=== PATIENT | female | born 1990 | race Two or more races ===

== ENCOUNTER → 2018-02-10 | Outpatient (CLI) | payer MEDICARE ==
--- NOTE | 2018-02-10 10:06 | RADIOLOGY REPORT (SQ) ---
EXAM DESCRIPTION: MRI HEAD COMBO COMPLETED DATE/TIME: 02/10/2018 8:42 am REASON FOR STUDY: MS (G35) G35 MULTIPLE SCLEROSIS COMPARISON: None. TECHNIQUE: Multiplanar imaging includes noncontrasted T1, T2, FLAIR, diffusion with ADC map and post gadolinium contrast T1 sequences. Images stored on PACS. CONTRAST TYPE AND DOSE: 9 mL Dotarem. RENAL FUNCTION: None required. The patient is less than 50 years old. LIMITATIONS: None. FINDINGS: ANATOMY: No developmental anomalies. Normal vascular flow voids. Pituitary fossa normal. CSF SPACES: Normal in size and contour. No hemorrhage. CEREBRUM and POSTERIOR FOSSA: Multiple chronic appearing demyelinating lesions are present involving the posterior patella, rightward anterior betty, left lateral betty, bilateral frontal parietal and tem poral deep periventricular white matter in characteristic distribution for multiple sclerosis. Today 's images demonstrate no lesions positive on diffusion. No contrast-enhancing white matter lesions a re evident. There is no MR evidence of acute ischemic change, acute intracranial hemorrhage, mass effect, or midl ine shift. DIFFUSION IMAGING: Negative for acute or subacute infarction. ORBITS: No masses. Globes normal. PARANASAL SINUSES: No fluid levels. Mucosa normal. OTHER: No other significant finding. IMPRESSION: Multiple chronic appearing demyelinating lesions characteristic for multiple sclerosis t hroughout the hemispheric white matter, betty, and posterior left medulla. No acute lesions are ident ified by contrast enhancement or diffusion signal alteration EVIDENCE OF ACUTE STROKE: NO. TECHNICAL DOCUMENTATION: JOB ID: [id number] [employer]- All Rights Reserved Reading location - IP/workstation name: [email or web address]
--- NOTE | 2018-02-10 10:13 | RADIOLOGY REPORT (SQ) ---
EXAM DESCRIPTION: MRI CERVICAL SPINE COMBO COMPLETED DATE/TIME: 02/10/2018 8:42 am REASON FOR STUDY: MS (G35) G35 MULTIPLE SCLEROSIS COMPARISON: MRI brain same date TECHNIQUE: Sagittal and Axial imaging includes T1, T2, STIR and gradient echo sequences. T1 post cherelle olinium sequences. CONTRAST TYPE AND DOSE: 9 mL Dotarem. RENAL FUNCTION: None required. The patient is less than 50 years old. LIMITATIONS: None. FINDINGS: ALIGNMENT: Normal. VERTEBRAE: Intact. BONE MARROW: Normal. No marrow replacement or reactive changes. DISCS: Normal. No significant abnormal signal or loss of height. HARDWARE: None in the spine. CORD AND BASE OF BRAIN: Chronic appearing demyelinating lesions are seen at the upper edge of the fie ld of view on the sagittal T2/stir images in the right anterior betty, left lateral betty and posterior medulla. There is a 1.6 cm long segment of abnormal increased stir/T2 signal in the anterior and leftward vent ral cord. This is seen from the C2-3 disc space down to the C3-4 disc space. No contrast enhancemen t. This is best shown on sagittal T2 image 8 and axial images 2-7. This is likely a chronic finding SOFT TISSUES: No soft tissue masses. C1-C2: No significant spinal stenosis. C2-C3: No significant spinal stenosis or exit foraminal stenosis. C3-C4: No significant spinal stenosis or exit foraminal stenosis. C4-C5: No significant spinal stenosis or exit foraminal stenosis. C5-C6: No significant spinal stenosis or exit foraminal stenosis. C6-C7: No significant spinal stenosis or exit foraminal stenosis. C7-T1: No significant spinal stenosis or exit foraminal stenosis. UPPER THORACIC: Incompletely imaged. No significant spinal stenosis or exit foraminal stenosis. ENHANCEMENT: No abnormal enhancement. OTHER: No other significant finding. IMPRESSION: Abnormal increased intrinsic cord signal anterior and leftward cervical cord from the C2 -3 level through the C3-4 level. This likely represents a subacute or chronic demyelinating plaque. COMMENT: None. TECHNICAL DOCUMENTATION: JOB ID: [id number] [employer]- All Rights Reserved Reading location - IP/workstation name: [email or web address]
== END ==
LOC: RAD 06:46
PROVIDERS: ATTEND Psychiatry & Neurology Neurology
DX: G35 Multiple sclerosis (principal)
CPT/HCPCS: 70553; 72156; A9576

== ENCOUNTER 2018-07-10 13:50 | Emergency (ER) | payer MEDICARE ==
--- NOTE | 2018-07-10 14:27 | ER Document Report ---
ED Medical Screen (RME) - General Chief Complaint: General Weakness Stated Complaint: GENERALIZED WEAKNESS Time Seen by Provider: 07/10/18 14:20 Primary Care Provider: KATIA CALDERON III, MD [Primary Care Provider] - Follow up as needed TRAVEL OUTSIDE OF THE [place] IN LAST 30 DAYS: No - HPI Notes: 07/10/18 14:25 Patient is a 28-year-old female with a history of MS and muscular dystrophy who presents to the emergency department complaining of possible relapse of her MS. She is usually seen by [facility]. Her last MRI was in December. Patient states that she has needed steroids in the past or previous flareups. Patient states that she started taking a new medicine that was supposed to help her walk, but believes that it is putting her in another relapse of MS as she has had difficulty ambulating without assistance which is not usually normal for her. She is otherwise eating and drinking without difficulty. The left side of her body is more affected than the right which is not uncommon when it comes to weakness. Denies SAENZ, fever, neck pain, URI, CP, SOB, Abd pain, or rash. I have treated and performed a rapid initial assessment of this patient. A co mprehensive ED assessment and evaluation of the patient, analysis of test results and completion of medical decision making process will be conducted by additional ED providers. PHYSICAL EXAMINATION: GENERAL: Well-appearing, well-nourished and in no acute distress. A&Ox4. Answers questions appropriately. LUNGS: Breath sounds clear to auscultation bilaterally and equal. No wheezes rales or rhonchi. HEART: Regular rate and rhythm without murmurs, rubs, gallops. - Related Data Allergies/Adverse Reactions: No Known Allergies Allergy (Verified 07/10/18 13:55) Past Medical History Past Surgical History: Reports: Hx Appendectomy, Hx Orthopedic Surgery - Immunizations Hx Diphtheria, Pertussis, Tetanus Vaccination: Yes Doctor's Discharge - Discharge Referrals: KATIA CALDERON III, MD [Primary Care Provider] - Follow up as needed
[2018-07-10 15:35] LABS: ABSOLUTE LYMPHOCYTES (AUTO) 1.4 10^3/uL (0.5-4.7); ABSOLUTE MONOCYTES (AUTO) 0.7 10^3/uL (0.1-1.4); ABSOLUTE NEUT (AUTO) 4.1 10^3/uL (1.7-8.2); BASOPHILS % (AUTO) 0.7 % (0-2); EOSINOPHILS % (AUTO) 0.7 % (0-6); HEMATOCRIT 37.9 % (36.0-47.0); HEMOGLOBIN 12.5 g/dL (12.0-15.5); LYMPHOCYTES % (AUTO) 21.7 % (13-45); MEAN CORPUSCULAR VOLUME 82 fl (80-97); MONOCYTES % (AUTO) 10.6 % (3-13); PLATELET COUNT 328 10^3/uL (150-450); RED BLOOD COUNT 4.64 10^6/uL (3.72-5.28); SEGMENTED NEUTROPHILS % (AUTO) 66.3 % (42-78); TOTAL CELLS COUNTED % (AUTO) 100 %; WHITE BLOOD COUNT 6.2 10^3/uL (4.0-10.5)
[2018-07-10 15:45] LABS: ALANINE AMINOTRANSFERASE 17 U/L (9-52); ALBUMIN 4.5 g/dL (3.5-5.0); ALKALINE PHOSPHATASE 71 U/L (38-126); ANION GAP 9 (5-19); ASPARTATE AMINO TRANSFERASE 20 U/L (14-36); BILIRUBIN,DIRECT 0.3 mg/dL (0.0-0.4); BILIRUBIN,TOTAL 0.4 mg/dL (0.2-1.3); BLOOD UREA NITROGEN 12 mg/dL (7-20); CALCIUM 9.3 mg/dL (8.4-10.2); CARBON DIOXIDE 28 mmol/L (22-30); CHLORIDE 105 mmol/L (98-107); GLUCOSE 81 mg/dL (75-110); POTASSIUM 4.3 mmol/L (3.6-5.0); SODIUM 141.5 mmol/L (137-145); TOTAL PROTEIN 7.8 g/dL (6.3-8.2)
--- NOTE | 2018-07-10 17:56 | RADIOLOGY REPORT (SQ) ---
EXAM DESCRIPTION: MRI CERVICAL SPINE COMBO COMPLETED DATE/TIME: 07/10/2018 5:33 pm REASON FOR STUDY: Eval for active plaques, h/o MS COMPARISON: 02/10/2018 TECHNIQUE: Sagittal and Axial imaging includes T1, T2, STIR and gradient echo sequences. T1 post cherelle olinium sequences. CONTRAST TYPE AND DOSE: 10 mL Dotarem. RENAL FUNCTION: Not indicated. ACR Type II contrast agent associated with few, if any, unconfounded cases of NSF LIMITATIONS: None. FINDINGS: ALIGNMENT: Normal. VERTEBRAE: Intact. BONE MARROW: Normal. No marrow replacement or reactive changes. DISCS: Normal. No significant abnormal signal or loss of height. HARDWARE: None in the spine. CORD AND BASE OF BRAIN: Focal plaque identified from the level of C2-C3 similar in appearance to the previous study. No interval change. No additional lesions. No enhancement. SOFT TISSUES: No soft tissue masses. C1-C2: No significant spinal stenosis. C2-C3: No significant spinal stenosis or exit foraminal stenosis. C3-C4: No significant spinal stenosis or exit foraminal stenosis. C4-C5: No significant spinal stenosis or exit foraminal stenosis. C5-C6: No significant spinal stenosis or exit foraminal stenosis. C6-C7: No significant spinal stenosis or exit foraminal stenosis. C7-T1: No significant spinal stenosis or exit foraminal stenosis. UPPER THORACIC: Incompletely imaged. No significant spinal stenosis or exit foraminal stenosis. ENHANCEMENT: No abnormal enhancement. OTHER: No other significant finding. IMPRESSION: Stable plaque at the level of C2-3 without interval change from the previous study. Tripp yusuf COMMENT: None. TECHNICAL DOCUMENTATION: JOB ID: [id number] [employer]- All Rights Reserved Reading location - IP/workstation name: [email or web address]
--- NOTE | 2018-07-10 17:58 | RADIOLOGY REPORT (SQ) ---
EXAM DESCRIPTION: MRI HEAD COMBO COMPLETED DATE/TIME: 07/10/2018 5:33 pm REASON FOR STUDY: eval for active plaques, h/o MS COMPARISON: 02/10/2018 TECHNIQUE: Multiplanar imaging includes noncontrasted T1, T2, FLAIR, diffusion with ADC map and post gadolinium contrast T1 sequences. Images stored on PACS. CONTRAST TYPE AND DOSE: 10 mL Prohance. RENAL FUNCTION: Not indicated. ACR Type II contrast agent associated with few, if any, unconfounded cases of NSF LIMITATIONS: None. FINDINGS: ANATOMY: No anomalies. Normal vascular flow voids. Pituitary fossa normal. CSF SPACES: Normal in size and contour. No hemorrhage. CEREBRUM: No hemorrhage. No mass effect. No enhancing lesions. There multiple areas of high signal intensity best seen on FLAIR imaging perpendicular to the ventricles typical of lesions in multiple sclerosis. There is no change since the previous MRI and January 2018. No enhancing lesions. POSTERIOR FOSSA: 3 small plaques in the betty and brainstem are stable. No enhancement. No hemorrhag e. No edema, masses, or mass effect. Internal auditory canals, cerebellopontine angles, mastoids norm al. No enhancing lesions. No abnormal enhancement post contrast. DIFFUSION IMAGING: Negative for acute or subacute infarction. ORBITS: No masses. Globes normal. PARANASAL SINUSES: No fluid levels. Mucosa normal. OTHER: No other significant finding. IMPRESSION: Stable appearance of the MRI since the prior study January 2018. Multiple MS plaques. No enhancement. No new lesions. EVIDENCE OF ACUTE STROKE: NO. TECHNICAL DOCUMENTATION: JOB ID: [id number] [employer]- All Rights Reserved Reading location - IP/workstation name: [email or web address]
--- NOTE | 2018-07-10 18:27 | ER Document Report ---
ED General - General Chief Complaint: General Weakness Stated Complaint: GENERALIZED WEAKNESS Time Seen by Provider: 07/10/18 14:20 Primary Care Provider: KATIA CALDERON III, MD [Primary Care Provider] - Follow up as needed Mode of Arrival: Wheelchair Information source: Patient Notes: Patient is a 28-year-old female with past medical history of MS who presents the emergency department with increased weakness over the last week. Patient reports she was put on a new medication approximately 2 weeks ago called Casimiro by her neurologist for her MS. She states ever since she started taking this medication she feels that she has had adverse side effects. TRAVEL OUTSIDE OF THE [place] IN LAST 30 DAYS: No - Related Data Allergies/Adverse Reactions: No Known Allergies Allergy (Verified 07/10/18 13:55) Past Medical History - General Information source: Patient - Social History Smoking Status: Never Smoker Chew tobacco use (# tins/day): No Frequency of alcohol use: Rare Drug Abuse: None, Prescription drugs Family History: Reviewed & Not Pertinent Patient has suicidal ideation: No Patient has homicidal ideation: No - Medical History Medical History: Negative Renal/ Medical History: Denies: Hx Peritoneal Dialysis Musculoskeletal Medical History: Reports Hx Multiple Sclerosis, Reports Hx Muscular Dystrophy Past Surgical History: Reports: Hx Appendectomy, Hx Orthopedic Surgery - Immunizations Hx Diphtheria, Pertussis, Tetanus Vaccination: Yes Review of Systems - Review of Systems Constitutional: Weakness EENT: No symptoms reported Cardiovascular: No symptoms reported Respiratory: No symptoms reported Gastrointestinal: No symptoms reported Genitourinary: No symptoms reported Female Genitourinary: No symptoms reported Musculoskeletal: No symptoms reported Skin: No symptoms reported Hematologic/Lymphatic: No symptoms reported Neurological/Psychological: No symptoms reported Physical Exam - Vital signs Vitals: Temp Pulse Resp BP Pulse Ox 97.9 F 107 H 18 106/77 100 07/10/18 18:31 07/10/18 18:31 07/10/18 18:31 07/10/18 18:31 07/10/18 18:31 - Notes Notes: PHYSICAL EXAMINATION: GENERAL: Well-appearing, well-nourished and in no acute distress. HEAD: Atraumatic, normocephalic. EYES: Pupils equal round and reactive to light, extraocular movements intact, conjunctiva are normal. ENT: Nares patent, oropharynx clear without exudates. Moist mucous membranes. NECK: Normal range of motion, supple without lymphadenopathy LUNGS: Breath sounds clear to auscultation bilaterally and equal. No wheezes rales or rhonchi. HEART: Regular rate and rhythm without murmurs ABDOMEN: Soft, nontender, nondistended abdomen. No guarding, no rebound. No masses appreciated. Female : No CVA tenderness. Musculoskeletal: Normal range of motion, no pitting or edema. No cyanosis. NEUROLOGICAL: Cranial nerves grossly intact. Normal speech. Normal sensory, motor exams PSYCH: Normal mood, normal affect. SKIN: Warm, Dry, normal turgor, no rashes or lesions noted. Course - Re-evaluation Re-evalutation: Patient was initially seen by provider in triage who initiated her workup. All lab work is unremarkable. An MRI was also done of her brain as well as her spine, these are both unremarkable with no new findings. All test results were discussed with patient and family. Likely symptoms are secondary to medication side effects. This medication does have side effects of MS exacerbation, weakness, extreme fatigue and altered LOC. Patient will call her neurologist in follow-up, she states she has Ken stopped taking the medication. - Vital Signs Vital signs: Temp Pulse Resp BP Pulse Ox 97.9 F 107 H 18 106/77 100 07/10/18 18:31 07/10/18 18:31 07/10/18 18:31 07/10/18 18:31 07/10/18 18:31 - Laboratory Result Diagrams: 07/10/18 15:14 07/10/18 15:14 Laboratory results interpreted by me: 07/10/18 15:14 Creatinine 0.19 L Discharge - Discharge Clinical Impression: Medication side effects, MS (multiple sclerosis) Condition: Stable Disposition: HOME, SELF-CARE Additional Instructions: All of your lab work today was normal. I have enclosed a copy of both of your MRIs that we did today. There was no new findings. I do feel that most of her symptoms are a residual of the medication that you are taking. Please continue to follow-up with your neurologist as we discussed, call them Friday to schedule an appointment. Please return to the emergency department for any new or worsening symptoms. Referrals: KATIA CALDERON III, MD [Primary Care Provider] - Follow up as needed
[2018-07-10 18:32] VITALS: BP 106/77
== END 2018-07-10 18:43 | disposition home or self-care (01) ==
LOC: ER 13:50
DX: T39.2X5A Adverse effect of pyrazolone derivatives, initial encounter (principal); G35 Multiple sclerosis; R53.1 Weakness; Z79.899 Other long term (current) drug therapy
CPT/HCPCS: 36415; 70553; 72156; 80053; 85025; 99284

== ENCOUNTER 2018-11-02 05:22 | Day surgery (SDC) | payer MEDICARE, MEDICAID ==
[2018-10-28 10:27] LABS: APPEARANCE,URINE CLEAR; BILIRUBIN,URINE NEGATIVE (NEGATIVE); COLOR,URINE YELLOW; GLUCOSE, URINE NEGATIVE (NEGATIVE); KETONES,URINE NEGATIVE (NEGATIVE); LEUKOCYTE ESTERASE,URINE LARGE (NEGATIVE); NITRITE,URINE NEGATIVE (NEGATIVE); PROTEIN,URINE NEGATIVE (NEGATIVE); URINE SPECIFIC GRAVITY 1.017; UROBILINOGEN,URINE NEGATIVE mg/dL (<2.0)
[2018-10-28 12:23] LABS: HEMATOCRIT 36.9 % (36.0-47.0); MEAN CORPUSCULAR HEMOGLOBIN 26.9 pg (27.0-33.4); MEAN CORPUSCULAR HGB CONC 32.6 g/dL (32.0-36.0); MEAN CORPUSCULAR VOLUME 83 fl (80-97); PLATELET COUNT 377 10^3/uL (150-450); RED BLOOD COUNT 4.47 10^6/uL (3.72-5.28); RED CELL DISTRIBUTION WIDTH 12.8 % (11.5-14.0)
[2018-10-28 12:47] LABS: ALANINE AMINOTRANSFERASE 16 U/L (9-52); ALBUMIN 4.7 g/dL (3.5-5.0); ALKALINE PHOSPHATASE 71 U/L (38-126); ANION GAP 10 (5-19); ASPARTATE AMINO TRANSFERASE 26 U/L (14-36); BILIRUBIN,DIRECT 0.4 mg/dL (0.0-0.4); BILIRUBIN,TOTAL 0.5 mg/dL (0.2-1.3); BLOOD UREA NITROGEN 14 mg/dL (7-20); CALCIUM 9.5 mg/dL (8.4-10.2); CARBON DIOXIDE 26 mmol/L (22-30); CHLORIDE 102 mmol/L (98-107); POTASSIUM 4.7 mmol/L (3.6-5.0); TOTAL PROTEIN 7.8 g/dL (6.3-8.2)
[2018-10-28 13:02] LABS: GLUCOSE 66 mg/dL (75-110)
--- NOTE | 2018-10-29 08:08 | EKG REPORT ---
SEVERITY:- ABNORMAL ECG - SINUS TACHYCARDIA PROBABLE LEFT VENTRICULAR HYPERTROPHY : Confirmed by: Valentine Julien MD 28-Oct-2018 21:28:23
[~2018-11-02 05:22] MED LIST: CEFAZOLIN 1 GM/D5W RTU 1 GM/50 ML RTUPB IV ONE; CEFAZOLIN 1 GM/D5W RTU 1 GM/50 ML RTUPB IV PRN; LACTATED RINGERS 1000 ML IV PRN; LIDOCAINE 0.5% INJ-PF (5 MG/ML) 50 ML SDV SUBCUT PRN
[2018-11-02] MEDS ORDERED: DEXAMETHASONE SOD PHOSPHATE INJ 4 MG/1 ML VIAL ONE (07:01)
[2018-11-02] MEDS ORDERED: ONDANSETRON HCL INJ/PF 4 MG/2 ML SDV ONE (07:01)
[2018-11-02] MEDS ORDERED: KETOROLAC TROMETHAMINE 60 MG/2 ML SDV ONE (07:01)
[2018-11-02] MEDS ORDERED: FENTANYL CITRATE INJ/PF 250 MCG/5 ML AMPULE ONE (07:01)
[2018-11-02] MEDS ORDERED: MIDAZOLAM 2 MG/2 ML INJ ONE (07:01)
[2018-11-02] MEDS ORDERED: PROPOFOL INJ 200 MG/20 ML VIAL IV ONE (07:02)
[2018-11-02] MEDS ORDERED: KETAMINE HCL INJ 500 MG/10 ML VIAL ONE (07:10)
[2018-11-02] MEDS ORDERED: ACETAMINOPHEN 1,000 MG/100 ML RTUPB IV ONE (08:39)
[2018-11-02] MEDS ORDERED: KETOROLAC TROMETHAMINE INJ/PF 30 MG/1 ML SDV ONE (08:39)
[2018-11-02] MEDS: FENTANYL CITRATE INJ/PF 100 MCG/2 ML AMPUL ONE ×4 (08:50→09:05)
[2018-11-02] MEDS: MORPHINE SULFATE 10 MG/ML INJ ONE ×2 (09:18→09:24)
[2018-11-02] MEDS ORDERED: ONDANSETRON HCL INJ/PF 4 MG/2 ML SDV IV PRN (09:29)
[2018-11-02] MEDS ORDERED: FENTANYL CITRATE INJ/PF 100 MCG/2 ML AMPUL IV PRN ×3 (09:29)
[2018-11-02] MEDS ORDERED: OXYCODONE-ACETAMINOPHEN 5-325 MG TABLET PO PRN ×3 (09:29→09:45)
[2018-11-02] MEDS ORDERED: PROMETHAZINE HCL INJ 25 MG/1 ML VIAL IV PRN ×2 (09:29)
[2018-11-02] MEDS ORDERED: MORPHINE SULFATE 10 MG/ML INJ IV PRN (09:29)
[2018-11-02] MEDS ORDERED: MEPERIDINE HCL/PF INJ 25 MG/1 ML DISP.SYRIN IV PRN (09:29)
[2018-11-02] MEDS ORDERED: DIPHENHYDRAMINE HCL 50 MG/ML VIAL IV PRN (09:29)
[2018-11-02] MEDS ORDERED: PROMETHAZINE HCL INJ 25 MG/1 ML VIAL ONE (09:41)
[2018-11-02] MEDS ORDERED: HYDROMORPHONE HCL INJ/PF 2 MG/ML AMPULE ONE ×2 (09:46→13:35)
[2018-11-02] MEDS ORDERED: DEXTROSE 5%-LACTATED RINGERS 1,000 ML IV PRN (09:46)
--- NOTE | 2018-11-02 11:55 | OPERATIVE REPORT E ---
Operative Report NAME: BEL SINGH : 1990 AGE: 28Y DATE OF SURGERY: 11/02/2018 ROOM: 228 PREOPERATIVE DIAGNOSIS: MENORRHAGIA. POSTOPERATIVE DIAGNOSIS: MENORRHAGIA. OPERATION: Total vaginal hysterectomy (TVH). SURGEON: Thomas CHANEL M.D. ANESTHESIA: General. ESTIMATED BLOOD LOSS: Less than 25 mL TISSUE REMOVED OR ALTERED: Uterus. PROCEDURE: The patient was placed in the dorsal lithotomy position, prepped and draped in usual sterile fashion. A speculum was placed. The cervix visualized and grasped with a thyroid clamp. Posterior cul-de-sac was entered with sharp dissection. The posterior parietal peritoneum was sutured to the posterior cuff with 2-0 Vicryl. Left uterosacral was clamped, divided, and sutured with 2-0 Vicryl, repeated on the right. The cervix was sharply circumscribed. The anterior parietal peritoneum was entered with sharp dissection. Serial clamps were used to divide the uterus with each side being clamped, divided and sutured with 2-0 Vicryl, continued to the level of the utero-ovarian ligament which were cross-clamped. Uterus removed. Pedicles were inspected and hemostasis was noted. Cuff was closed with [id number] interrupted and hemostasis was noted. The patient tolerated the procedure well. Her urine remained clear throughout procedure. She was taken to recovery in good condition. DICTATING PHYSICIAN: Thomas CHANEL M.D. [id number] PHY#: [id number] ID: [id number] JOB#: [id number] ACCT: [id number] cc:Thomas CHANEL M.D. >
[2018-11-02] MEDS ORDERED: HYDROMORPHONE HCL INJ/PF 2 MG/ML AMPULE IV PRN (13:46)
[2018-11-02] MEDS ORDERED: IBUPROFEN 800 MG TABLET PO SCH (14:00)
[2018-11-02 18:44] VITALS: BP 116/83
== END 2018-11-02 19:09 | disposition home or self-care (01) ==
LOC: OROUT 05:22 → EDSTATUS 09:30 → 2S 10:44 → OROUT 19:09
PROVIDERS: ATTEND Obstetrics & Gynecology Gynecology
DX: N92.0 Excessive and frequent menstruation with regular cycle (principal); N94.6 Dysmenorrhea, unspecified; N87.0 Mild cervical dysplasia
CPT/HCPCS: 93005; 86900; 86901; 36415; 86850; 85027; 81025; 80053; 81001; 88307 ×2; 93010; 00944; 58260; J2250; J0690; A9270 ×2; J1100; J3010 ×2; J3490; J1885; J2270; J1170; J2550; J2405; J2704; J0131; 944

== ENCOUNTER 2018-11-05 22:23 | Emergency (ER) | payer MEDICARE, MEDICAID ==
--- NOTE | 2018-11-05 23:29 | ER Document Report ---
ED Medical Screen (RME) - General Chief Complaint: Urinary Retention Stated Complaint: URINARY COMPLAINTS Time Seen by Provider: 11/05/18 23:26 Primary Care Provider: SKYLER GAMBOA PA-C [Primary Care Provider] - Follow up as needed Mode of Arrival: Wheelchair Information source: Patient Notes: Patient has a history of muscular dystrophy and multiple sclerosis. Patient had a vaginal hysterectomy 3 days ago. Patient was unable to void after the surgery and had a Theodore catheter inserted. Patient had her catheter removed at 830 this morning and has been unable to void since then. Patient complains of pelvic pain back pain and leg pain. I have greeted and performed a rapid initial assessment of this patient. A comprehensive ED assessment and evaluation of the patient, analysis of test results and completion of the medical decision making process will be conducted by additional ED providers. TRAVEL OUTSIDE OF THE [place] IN LAST 30 DAYS: No - Related Data Allergies/Adverse Reactions: No Known Allergies Allergy (Verified 11/02/18 05:53) Past Medical History - Past Medical History Cardiac Medical History: Denies: Hx Coronary Artery Disease, Hx Heart Attack, Hx Hypertension Pulmonary Medical History: Denies: Hx Asthma, Hx Bronchitis, Hx COPD, Hx Pneumonia Neurological Medical History: Denies: Hx Cerebrovascular Accident, Hx Seizures Renal/ Medical History: Denies: Hx End Stage Renal Disease, Hx Kidney Stones, Hx Peritoneal Dialysis Musculoskeltal Medical History: Denies Hx Arthritis, Denies Hx Fibromyalgia, Reports Hx Multiple Sclerosis - MUSCULAR DYSTROPHY, Reports Hx Muscular Dystrophy Psychiatric Medical History: Denies: Hx Dementia Traumatic Medical History: Denies: Hx Fractures Past Surgical History: Reports: Hx Appendectomy, Hx Orthopedic Surgery. Denies: Hx Bowel Surgery, Hx Section, Hx Cholecystectomy, Hx Coronary Artery Bypass Graft, Hx Gastric Bypass Surgery, Hx Herniorrhaphy, Hx Hysterectomy, Hx Mastectomy, Hx Pacemaker, Hx Tonsillectomy, Hx Tubal Ligation - Immunizations Hx Diphtheria, Pertussis, Tetanus Vaccination: Yes History of Influenza Vaccine for 12/2016 - 05/2017 Season: No Physical Exam - Vital signs Vitals: Temp Pulse Resp BP Pulse Ox 97.9 F 108 H 16 127/84 H 85 L 11/05/18 22:54 11/05/18 22:54 11/05/18 22:54 11/05/18 22:54 11/05/18 22:54 - Abdominal Tenderness: Tender - Lower pelvic Course - Vital Signs Vital signs: Temp Pulse Resp BP Pulse Ox 97.9 F 108 H 16 127/84 H 85 L 11/05/18 22:54 11/05/18 22:54 11/05/18 22:54 11/05/18 22:54 11/05/18 22:54 Doctor's Discharge - Discharge Referrals: SKYLER GAMBOA PA-C [Primary Care Provider] - Follow up as needed
[2018-11-06] MEDS ORDERED: FENTANYL CITRATE INJ/PF 100 MCG/2 ML AMPUL IV ONE (00:48)
[2018-11-06 00:59] LABS: ABSOLUTE BASOPHILS # (AUTO) 0.1 10^3/uL (0.0-0.2); ABSOLUTE EOSINOPHILS # (AUTO) 0.1 10^3/uL (0.0-0.6); ABSOLUTE LYMPHOCYTES (AUTO) 2.5 10^3/uL (0.5-4.7); ABSOLUTE NEUT (AUTO) 7.8 10^3/uL (1.7-8.2); BASOPHILS % (AUTO) 0.7 % (0-2); HEMOGLOBIN 11.3 g/dL (12.0-15.5); MEAN CORPUSCULAR HEMOGLOBIN 26.4 pg (27.0-33.4); MEAN CORPUSCULAR HGB CONC 31.5 g/dL (32.0-36.0); MEAN CORPUSCULAR VOLUME 84 fl (80-97); MONOCYTES % (AUTO) 8.4 % (3-13); PLATELET COUNT 339 10^3/uL (150-450); RED CELL DISTRIBUTION WIDTH 13.1 % (11.5-14.0); SEGMENTED NEUTROPHILS % (AUTO) 67.9 % (42-78); TOTAL CELLS COUNTED % (AUTO) 100 %; WHITE BLOOD COUNT 11.4 10^3/uL (4.0-10.5)
[2018-11-06 01:34] LABS: ANION GAP 10 (5-19); BLOOD UREA NITROGEN 11 mg/dL (7-20); CALCIUM 9.1 mg/dL (8.4-10.2); CARBON DIOXIDE 32 mmol/L (22-30); CHLORIDE 99 mmol/L (98-107); GLUCOSE 87 mg/dL (75-110); POTASSIUM 4.7 mmol/L (3.6-5.0)
[2018-11-06] MEDS ORDERED: HYDROMORPHONE HCL INJ/PF 2 MG/ML AMPULE IV ONE (02:09)
[2018-11-06] MEDS ORDERED: ONDANSETRON HCL INJ/PF 4 MG/2 ML SDV IV ONE (02:09)
[2018-11-06] MEDS ORDERED: NORMAL SALINE 1000 ML 1,000 ML IV ONE (02:13)
--- NOTE | 2018-11-06 02:15 | ER Document Report ---
ED GI/ - General Chief Complaint: Urinary Retention Stated Complaint: URINARY COMPLAINTS Time Seen by Provider: 11/05/18 23:26 Primary Care Provider: SKYLER GAMBOA PA-C [Primary Care Provider] - Follow up as needed Mode of Arrival: Wheelchair Notes: Patient is a 28-year-old female that comes emergency department for chief complaint of urinary retention. She had a vaginal hysterectomy by Dr. Sutton 3 days ago. She was seen in the office this morning and had a Theodore catheter removed that was placed because of urinary retention after surgery, she states she was unable to urinate after that and did not urinate until she had a Theodore placed in the triage earlier this evening. She reports generalized abdominal pain and states her Percocet and ibuprofen are only minimally helping. She d enies vomiting, fever, or noted vaginal bleeding beyond mild spotting. Past medical history includes muscular dystrophy and multiple sclerosis. TRAVEL OUTSIDE OF THE [place] IN LAST 30 DAYS: No - Related Data Allergies/Adverse Reactions: No Known Allergies Allergy (Verified 11/02/18 05:53) Past Medical History - General Information source: Patient - Social History Smoking Status: Never Smoker Chew tobacco use (# tins/day): No Drug Abuse: None Lives with: Family Family History: Reviewed & Not Pertinent Patient has suicidal ideation: No Patient has homicidal ideation: No - Past Medical History Cardiac Medical History: Denies: Hx Coronary Artery Disease, Hx Heart Attack, Hx Hypertension Pulmonary Medical History: Denies: Hx Asthma, Hx Bronchitis, Hx COPD, Hx Pneumonia Neurological Medical History: Denies: Hx Cerebrovascular Accident, Hx Seizures Renal/ Medical History: Denies: Hx End Stage Renal Disease, Hx Kidney Stones, Hx Peritoneal Dialysis Musculoskeletal Medical History: Denies Hx Arthritis, Denies Hx Fibromyalgia, Reports Hx Multiple Sclerosis - MUSCULAR DYSTROPHY, Reports Hx Muscular Dystrophy Psychiatric Medical History: Denies: Hx Dementia Traumatic Medical History: Denies: Hx Fractures Past Surgical History: Reports: Hx Appendectomy, Hx Hysterectomy, Hx Orthopedic Surgery. Denies: Hx Bowel Surgery, Hx Section, Hx Cholecystectomy, Hx Coronary Artery Bypass Graft, Hx Gastric Bypass Surgery, Hx Herniorrhaphy, Hx Ma stectomy, Hx Pacemaker, Hx Tonsillectomy, Hx Tubal Ligation - Immunizations Hx Diphtheria, Pertussis, Tetanus Vaccination: Yes Review of Systems - Review of Systems Constitutional: No symptoms reported EENT: No symptoms reported Cardiovascular: No symptoms reported Respiratory: No symptoms reported Gastrointestinal: See HPI Genitourinary: See HPI Female Genitourinary: See HPI Musculoskeletal: No symptoms reported Skin: No symptoms reported Hematologic/Lymphatic: No symptoms reported Neurological/Psychological: No symptoms reported Physical Exam - Vital signs Vitals: Temp Pulse Resp BP Pulse Ox 97.9 F 108 H 16 127/84 H 85 L 11/05/18 22:54 11/05/18 22:54 11/05/18 22:54 11/05/18 22:54 11/05/18 22:54 - Notes Notes: GENERAL: Patient is very petite. She is talkative and well-appearing. HEAD: Normocephalic, atraumatic. EYES: Pupils equal, round, and reactive to light. Extraocular movements intact. ENT: Oral mucosa moist, tongue midline. Oropharynx unremarkable. Airway patent. LUNGS: Clear to auscultation bilaterally, no wheezes, rales, or rhonchi. No respiratory distress. HEART: Regular rate and rhythm. No murmur ABDOMEN: There is mild generalized abdominal tenderness without significant tenderness, guarding, rigidity, or rebound tenderness. GENITOURINARY: Theodore bag in place with good urine drainage which is not grossly bloody EXTREMITIES: Moves all 4 extremities spontaneously. No edema, normal radial and dorsalis pedis pulses bilaterally. No cyanosis. BACK: no cervical, thoracic, lumbar midline tenderness. No saddle anesthesia, normal distal neurovascular exam. Moves all extremities in full range of motion. NEUROLOGICAL: Alert and oriented x3. Normal speech. Cranial nerves II through XII grossly intact. PSYCH: Normal affect, normal mood. SKIN: Warm, dry, normal turgor. No rashes or lesions noted. Course - Re-evaluation Re-evalutation: I believe the initial pulse oxygen saturation was an error and this was rechecked and normal. On my evaluation patient is very well-appearing. She has minimal generalized abdominal tenderness but this is expected after her hysterectomy. Her Theodore is in place, small amount of urine which appears normal but grossly has blood. Patient is tachycardic, however I reviewed her records and she is almost always tachycardic. I did discuss this with patient and this seems to be a normal status for her. She is not febrile. She was given some pain medication, on reevaluation she does not have any complaints. CBC, chemistry unremarkable without concerning anemia, renal failure, or leukocytosis. Patient is requesting discharge. She will be discharged with a Theodore in place because of returned urinary retention, referred to urology, discussed follow-up and return precautions in detail. Patient states understanding and agreement with plan. Stable at time of discharge. - Vital Signs Vital signs: Temp Pulse Resp BP Pulse Ox 98.3 F 116 H 18 121/79 99 11/06/18 03:45 11/06/18 03:45 11/06/18 03:45 11/06/18 03:45 11/06/18 03:45 - Laboratory Result Diagrams: 11/06/18 00:45 11/06/18 00:45 Laboratory results interpreted by me: 11/06/18 11/06/18 11/06/18 00:45 00:45 02:13 WBC 11.4 H Hgb 11.3 L MCH 26.4 L MCHC 31.5 L Carbon Dioxide 32 H Creatinine < 0.15 L Urine Protein 100 H Urine Ketones 20 H Urine Blood LARGE H Urine Ascorbic Acid 20 H Discharge - Discharge Clinical Impression: Urinary retention Condition: Stable Disposition: HOME, SELF-CARE Additional Instructions: Your laboratory work-up does not show any concerning findings at this time. Your rapid heart rate appears to be your normal baseline. Follow-up with your primary care provider for this. You have been given an alternative to your pain medication, do not take them at the same time, use one or the other. Because of the urinary retention, keep the Theodore in for now, call urology referral listed below to perform close follow-up and additional management. Return if you worsen including fever, severe worsening pain, vomiting, or any other concerning or worsening symptoms. [facility] [address] [place] [address] Tejas Zaldivar MD Doctor in [place], [place] Address: [address], [place] [address] Prescriptions: Morphine Sulfate [Morphine Ir 15 Mg Tablet] 15 mg PO TID PRN #15 tablet PRN Reason: Referrals: SKYLER GAMBOA PA-C [Primary Care Provider] - Follow up as needed
[2018-11-06 02:53] LABS: APPEARANCE,URINE CLEAR; BILIRUBIN,URINE NEGATIVE (NEGATIVE); COLOR,URINE YELLOW; GLUCOSE, URINE NEGATIVE (NEGATIVE); KETONES,URINE 20 mg/dL (NEGATIVE); LEUKOCYTE ESTERASE,URINE NEGATIVE (NEGATIVE); NITRITE,URINE NEGATIVE (NEGATIVE); PROTEIN,URINE 100 mg/dL (NEGATIVE); URINE SPECIFIC GRAVITY 1.023; UROBILINOGEN,URINE NEGATIVE mg/dL (<2.0)
[2018-11-06 03:34] LABS: ADD MANUAL MICROSCOPIC YES
[2018-11-06 03:35] LABS: BACTERIA,URINE TRACE /HPF; RBC,URINE >100 /HPF
[2018-11-06 03:46] VITALS: BP 121/79
== END 2018-11-06 04:10 | disposition home or self-care (01) ==
LOC: ER 22:23
DX: R33.9 Retention of urine, unspecified (principal); R10.84 Generalized abdominal pain; Z79.899 Other long term (current) drug therapy
CPT/HCPCS: 99283; 96361; 96374; 96375; 36415; 87086; 85025; 80048; 81001; J3010; J1170; J2405; J7030

== ENCOUNTER → 2019-02-08 | Outpatient (CLI) | payer MEDICAID, MEDICARE ==
--- NOTE | 2019-02-08 13:30 | RADIOLOGY REPORT (SQ) ---
EXAM DESCRIPTION: U/S RETROPERITON (RENAL/AORTA) COMPLETED DATE/TIME: 02/08/2019 12:31 pm REASON FOR STUDY: UTI N39.0 URINARY TRACT INFECTION, SITE NOT SPECIFIED COMPARISON: None. TECHNIQUE: Dynamic and static grayscale images acquired of the kidneys and bladder and recorded on P ACS. Additional selected color Doppler and spectral images recorded. LIMITATIONS: Limited exam FINDINGS: RIGHT KIDNEY: Asymmetrically small measuring 7.6 cm. Normal echogenicity. No solid or susp icious masses. Upper pole cyst measuring 1.3 x 0.9 x 0.9 cm. Dilated renal pelvis. No caliceal dil ation. . No calcifications. LEFT KIDNEY: Normal size measuring 9.2 cm. Normal echogenicity. No solid or suspicious masses. No hy dronephrosis. No calcifications. BLADDER: No masses. OTHER FINDINGS: No other significant finding. IMPRESSION: 1. Mildly asymmetric small right kidney. Mild fullness of the renal pelvis without rina iceal dilation. 2. No visualized nephrolithiasis. TECHNICAL DOCUMENTATION: JOB ID: [id number] [email or web address]- All Rights Reserved Reading location - IP/workstation name: [email or web address]
== END ==
LOC: RAD 11:15
PROVIDERS: ATTEND Urology
DX: N39.0 Urinary tract infection, site not specified (principal)
CPT/HCPCS: 76770

== ENCOUNTER 2020-04-05 13:25 | Emergency (ER) | payer MEDICARE ==
--- NOTE | 2020-04-05 15:08 | ER Document Report ---
ED Medical Screen (RME) - General Chief Complaint: Blood Pressure Problem Stated Complaint: LOW BLOOD PRESSURE Time Seen by Provider: 04/05/20 15:01 Primary Care Provider: NENA FIELDS MD [Primary Care Provider] - Follow up as needed Mode of Arrival: Wheelchair Information source: Patient, Relative Notes: HPI; 29-year-old female past medical history significant for multiple sclerosis was brought to emergency room by her stating that her blood pressures have been notably low at home when taken by home health. She does not have the actual numbers. States she has been having increasing fatigue with confusion and more lethargic than normal per for the past week. States she gets monthly IV infusions which are not helping with her MS. States symptoms tend to get worse right before she is due for an infusion. She denies any recent head trauma or head injury. PE: Alert and oriented x3. Answers questions appropriately. Lungs: Clear to a uscultation without rales, rhonchi, wheezes. Heart: Tachycardic without murmurs, rubs, gallops. Special Education Curriculum Specialist strength is equal and adequate bilaterally. I have greeted and performed a rapid initial assessment of this patient. A comprehensive ED assessment and evaluation of the patient, analysis of test results and completion of the medical decision making process will be conducted by additional ED providers. I have specifically instructed the patient or family members with the patient to immediately return to any nursing staff should anything change in the patient's condition or with their chief complaint. TRAVEL OUTSIDE OF THE [place] IN LAST 30 DAYS: No - Related Data Allergies/Adverse Reactions: No Known Allergies Allergy (Verified 04/05/20 15:00) Home Medications: tramadol, Past Medical History - Past Medical History Cardiac Medical History: Denies: Hx Coronary Artery Disease, Hx Heart Attack, Hx Hypertension Pulmonary Medical History: Denies: Hx Asthma, Hx Bronchitis, Hx COPD, Hx Pneumonia Neurological Medical History: Denies: Hx Cerebrovascular Accident, Hx Seizures, Hx Parkinson's Disease Renal/ Medical History: Denies: Hx End Stage Renal Disease, Hx Kidney Stones, Hx Peritoneal Dialysis Musculoskeltal Medical History: Denies Hx Arthritis, Denies Hx Fibromyalgia, Reports Hx Multiple Sclerosis - MUSCULAR DYSTROPHY, Reports Hx Muscular Dystrophy Psychiatric Medical History: Denies: Hx Dementia Traumatic Medical History: Denies: Hx Fractures Past Surgical History: Reports: Hx Appendectomy, Hx Hysterectomy, Hx Orthopedic Surgery. Denies: Hx Bowel Surgery, Hx Section, Hx Cholecystectomy, Hx Coronary Artery Bypass Graft, Hx Gastric Bypass Surgery, Hx Herniorrhaphy, Hx Mastectomy, Hx Pacemaker, Hx Tonsillectomy, Hx Tubal Ligation - Immunizations Hx Diphtheria, Pertussis, Tetanus Vaccination: Yes Physical Exam - Vital signs Vitals: Temp Pulse Resp BP Pulse Ox 98.1 F 120 H 20 100/65 96 04/05/20 13:42 04/05/20 13:42 04/05/20 13:42 04/05/20 13:42 04/05/20 13:42 Course - Vital Signs Vital signs: Temp Pulse Resp BP Pulse Ox 98.1 F 120 H 20 100/65 96 04/05/20 13:42 04/05/20 13:42 04/05/20 13:42 04/05/20 13:42 04/05/20 13:42 Doctor's Discharge - Discharge Referrals: NENA FIELDS MD [Primary Care Provider] - Follow up as needed
[2020-04-05] MEDS ORDERED: RINGERS SOLUTION,LACTATED 1,000 ML IV ONE (15:16)
--- NOTE | 2020-04-05 15:48 | RADIOLOGY REPORT (SQ) ---
EXAM DESCRIPTION: CT HEAD WITHOUT IMAGES COMPLETED DATE/TIME: 04/05/2020 3:26 pm REASON FOR STUDY: confusing COMPARISON: 07/10/2018 and 02/10/2018 TECHNIQUE: Axial images acquired through the brain without intravenous contrast. Images reviewed wi th bone, brain and subdural windows. Additional sagittal and coronal reconstructions were generated. Images stored on PACS. All CT scanners at this facility use dose modulation, iterative reconstruction, and/or weight based d osing when appropriate to reduce radiation dose to as low as reasonably achievable (ALARA). [facility]: Dose Right [facility]: CareDose [facility]: Dose Right [facility]: Teradose 4D [facility]: Smart Traction RADIATION DOSE: CT Rad equipment meets quality standard of care and radiation dose reduction techniq ues were employed. CTDIvol: 48.8 mGy. DLP: 884 mGy-cm. mGy. LIMITATIONS: None. FINDINGS: VENTRICLES: Normal size and contour. CEREBRUM: No masses. No hemorrhage. No midline shift. No evidence for acute infarction. Subtle are as of hypoattenuation within the periventricular white matter correlates to T2 prolongation demonstra maryana on comparison MR imaging in this patient with known multiple sclerosis diagnosis. Otherwise norm al hart- white matter differentiation and attenuation. CEREBELLUM: No masses. No hemorrhage. No alteration of density. No evidence for acute infarction. EXTRAAXIAL SPACES: No fluid collections. No masses. ORBITS AND GLOBE: No intra- or extraconal masses. Normal contour of globe without masses. CALVARIUM: No fracture. PARANASAL SINUSES: No fluid or mucosal thickening. SOFT TISSUES: No mass or hematoma. OTHER: No other significant finding. IMPRESSION: Stable imaging appearance of the brain given differences in modality. No acute intracra nial abnormality. EVIDENCE OF ACUTE STROKE: NO. COMMENT: Quality ID # [id number]: Final reports with documentation of one or more dose reduction techniques (e.g., Automated exposure control, adjustment of the mA and/or kV according to patient size, use of iterative reconstruction technique) TECHNICAL DOCUMENTATION: JOB ID: [id number] 2010 [employer]- All Rights Reserved Reading location - IP/workstation name: [email or web address]
--- NOTE | 2020-04-05 16:10 | RADIOLOGY REPORT (SQ) ---
EXAM DESCRIPTION: CHEST SINGLE VIEW IMAGES COMPLETED DATE/TIME: 04/05/2020 3:47 pm REASON FOR STUDY: weakness COMPARISON: None. EXAM PARAMETERS: NUMBER OF VIEWS: One view. TECHNIQUE: Single frontal radiographic view of the chest acquired. RADIATION DOSE: NA LIMITATIONS: None. FINDINGS: LUNGS AND PLEURA: Hyper aeration. No focal consolidation, pleural effusion, or pneumothor ax. MEDIASTINUM AND HILAR STRUCTURES: No masses. Contour normal. HEART AND VASCULAR STRUCTURES: Heart normal in size. Normal vasculature. BONES: No acute findings. HARDWARE: None in the chest. OTHER: No other significant finding. IMPRESSION: NO ACUTE RADIOGRAPHIC FINDING IN THE CHEST. TECHNICAL DOCUMENTATION: JOB ID: [id number] 2010 [email or web address]- All Rights Reserved Reading location - IP/workstation name: [email or web address]
[2020-04-05 16:57] LABS: ABSOLUTE BASOPHILS # (AUTO) 0.1 10^3/uL (0.0-0.2); ABSOLUTE LYMPHOCYTES (AUTO) 0.7 10^3/uL (0.5-4.7); ABSOLUTE MONOCYTES (AUTO) 0.8 10^3/uL (0.1-1.4); ABSOLUTE NEUT (AUTO) 8.3 10^3/uL (1.7-8.2); BASOPHILS % (AUTO) 0.5 % (0-2); EOSINOPHILS % (AUTO) 0.2 % (0-6); HEMATOCRIT 49.6 % (36.0-47.0); HEMOGLOBIN 15.6 g/dL (12.0-15.5); LYMPHOCYTES % (AUTO) 7.3 % (13-45); MEAN CORPUSCULAR HEMOGLOBIN 26.4 pg (27.0-33.4); MEAN CORPUSCULAR HGB CONC 31.5 g/dL (32.0-36.0); MEAN CORPUSCULAR VOLUME 84 fl (80-97); MONOCYTES % (AUTO) 7.9 % (3-13); PLATELET COUNT 265 10^3/uL (150-450); RED BLOOD COUNT 5.91 10^6/uL (3.72-5.28); RED CELL DISTRIBUTION WIDTH 13.1 % (11.5-14.0); SEGMENTED NEUTROPHILS % (AUTO) 84.1 % (42-78); TOTAL CELLS COUNTED % (AUTO) 100 %; WHITE BLOOD COUNT 9.9 10^3/uL (4.0-10.5)
[2020-04-05 17:17] LABS: ALBUMIN 4.5 g/dL (3.5-5.0); ALKALINE PHOSPHATASE 100 U/L (38-126); ASPARTATE AMINO TRANSFERASE 21 U/L (14-36); BILIRUBIN,DIRECT 0.2 mg/dL (0.0-0.4); BILIRUBIN,TOTAL 0.3 mg/dL (0.2-1.3); BLOOD UREA NITROGEN 12 mg/dL (7-20); CALCIUM 9.3 mg/dL (8.4-10.2); CHLORIDE 88 mmol/L (98-107); GLUCOSE 111 mg/dL (75-110); POTASSIUM 4.3 mmol/L (3.6-5.0); TOTAL PROTEIN 8.2 g/dL (6.3-8.2)
[2020-04-05 17:30] LABS: ANION GAP 8 (5-19)
[2020-04-05 17:32] LABS: CARBON DIOXIDE 42 mmol/L (22-30)
[2020-04-05 18:58] LABS: APPEARANCE,URINE CLOUDY; BILIRUBIN,URINE NEGATIVE (NEGATIVE); COLOR,URINE AMBER; GLUCOSE, URINE NEGATIVE (NEGATIVE); KETONES,URINE TRACE mg/dL (NEGATIVE); LEUKOCYTE ESTERASE,URINE TRACE (NEGATIVE); NITRITE,URINE NEGATIVE (NEGATIVE); PROTEIN,URINE 30 mg/dL (NEGATIVE); URINE SPECIFIC GRAVITY 1.021
--- NOTE | 2020-04-05 23:37 | EKG REPORT ---
SEVERITY:- ABNORMAL ECG - SINUS TACHYCARDIA RAA MARÍA, CONSIDER BIATRIAL ABNORMALITIES LEFT AXIS DEVIATION : Confirmed by: Kayla Arzola 05-Apr-2020 23:36:54
[2020-04-06 03:15] VITALS: BP 123/96
[2020-04-06 03:48] LABS: ALBUMIN 3.7 g/dL (3.5-5.0); ALKALINE PHOSPHATASE 80 U/L (38-126); ASPARTATE AMINO TRANSFERASE 24 U/L (14-36); BILIRUBIN,DIRECT 0.3 mg/dL (0.0-0.4); BILIRUBIN,TOTAL 0.4 mg/dL (0.2-1.3); BLOOD UREA NITROGEN 8 mg/dL (7-20); CALCIUM 8.6 mg/dL (8.4-10.2); CHLORIDE 90 mmol/L (98-107); GLUCOSE 76 mg/dL (75-110); POTASSIUM 4.5 mmol/L (3.6-5.0); TOTAL PROTEIN 6.7 g/dL (6.3-8.2)
[2020-04-06 03:54] LABS: ANION GAP 7 (5-19)
[2020-04-06 03:55] LABS: CARBON DIOXIDE 38 mmol/L (22-30)
[2020-04-06] MEDS ORDERED: OXYCODONE-ACETAMINOPHEN 5-325 MG TABLET PO ONE (04:58)
--- NOTE | 2020-04-06 04:59 | ER Document Report ---
ED General - General Chief Complaint: Blood Pressure Problem Stated Complaint: LOW BLOOD PRESSURE Time Seen by Provider: 04/05/20 15:01 Primary Care Provider: NENA FIELDS MD [Primary Care Provider] - Follow up as needed Mode of Arrival: Wheelchair Information source: Patient Notes: 29-year-old female presented to ED for complaint of altered mental status according to the nurse at home low blood pressure infused this morning. She states she has been much more fatigued than her normal self and she was lethargic this morning. Her lips were very dry and cracked when I first examined her. She has had 2 L of fluid since then. Lips are much more moist she is been alert oriented answering all questions since the first time I went and visited her. Her father was at the bedside the first time he takes care of her the most. He states she has been gradually getting more lethargic over the last couple days and she has had decreased appetite and was not drinking the fluids like he normally is able to get into her. She states she has a neurological appointment in about a week for her MS and she usually gets much worse right before her next infusion is due. She states she frequently gets steroids with her MS infusions. She has been alert and oriented answering all questions appropriately. Her lungs have been clear has been tachypneic and tach tachycardia since I got here. Constitutional: Negative for fever. HENT: Negative for sore throat. Eyes: Negative for visual changes. Cardiovascular: States she has been more fatigued she has been tachycardic the whole visit. She was extremely dehydrated Respiratory: Negative for shortness of breath. Gastrointestinal: Negative for abdominal pain, vomiting or diarrhea. Genitourinary: Negative for dysuria. Musculoskeletal: States she has a history of multiple sclerosis and still dystrophy and she always has pain in her back always has pain in her joints but this is part of her disease. Skin: Negative for rash. Neurological: Negative for headaches, weakness or numbness. She had states she has been more lethargic confused and fatigue today than her normal. She has been slowly progressively getting this way but she normally gets this way before her next treatment. She states they might have to change her MS treatments 10 point ROS negative except as marked above and in HPI. VITAL SIGNS: Within normal limits. GENERAL: No acute distress, non-toxic appearance. HEAD: Normal with no signs of head trauma. EYES: PERRLA, EOMI, conjunctiva normal, no discharge. EARS: Hearing grossly intact. NOSE: Normal. THROAT: Oropharynx is normal. NECK: Normal range of motion, no tenderness, supple, no lymphadenopathy, No adenopathy, no JVD. CHEST: Clear breath sounds bilaterally. No wheezes, rales, or rhonchi. CARDIAC: Regular rate and rhythm. S1 and S2, without murmurs, gallops, or rubs. VASCULAR: No Edema. Peripheral pulses normal and equal in all extremities. ABDOMEN: Normal and soft with no tenderness, no masses or pulsatile masses. GASTROINTESTINAL: Bowel sounds normal GENITOURINARY: Normal, No tenderness LYMPATHTIC: No lymphadenopathy noted. MUSCULOSKELETAL: Patient is able to move all arms and legs but they are weak due to her muscular sclerosis NEUROLOGICAL: Alert and oriented x 3. No focal sensory or strength deficits. Speech normal. Follows commands appropriately. PSYCHIATRIC: Normal Affect, judgement and mood. SKIN: Normal appearance with no rashes or lesions. TRAVEL OUTSIDE OF THE [place] IN LAST 30 DAYS: No - HPI Onset: Other Onset/Duration: Gradual - HPI, Intermittent Quality of pain: Achy Severity: Mild Pain Level: 2 Associated symptoms: Other - Her normal body aches much more fatigue was confused earlier Exacerbated by: Supine, Movement Relieved by: Denies Similar symptoms previously: Yes Recently seen / treated by doctor: No - Related Data Allergies/Adverse Reactions: No Known Allergies Allergy (Verified 04/05/20 15:00) Home Medications: tramadol, Past Medical History - General Information source: Patient, Parent - Social History Smoking Status: Never Smoker Frequency of alcohol use: None Drug Abuse: None Lives with: Family Family History: Reviewed & Not Pertinent Patient has homicidal ideation: No - Past Medical History Cardiac Medical History: Reports: Other - States she always has tachycardia Pulmonary Medical History: Reports: None EENT Medical History: Reports: None Neurological Medical History: Reports: Other - Muscular sclerosis muscular dystrophy Endocrine Medical History: Reports: None Renal/ Medical History: Reports: None Malignancy Medical History: Reports: None GI Medical History: Reports: None Musculoskeletal Medical History: Reports Hx Multiple Sclerosis - MUSCULAR DYSTR OPHY, Reports Hx Muscular Dystrophy, Reports Hx Muscle Spasm, Reports Hx Muscle Weakness Skin Medical History: Reports None Psychiatric Medical History: Reports: None Traumatic Medical History: Reports: None Infectious Medical History: Reports: None Past Surgical History: Reports: Hx Appendectomy, Hx Hysterectomy, Hx Orthopedic Surgery - Immunizations Hx Diphtheria, Pertussis, Tetanus Vaccination: Yes Physical Exam - Vital signs Vitals: Temp Pulse Resp BP Pulse Ox 98.1 F 120 H 20 100/65 96 04/05/20 13:42 04/05/20 13:42 04/05/20 13:42 04/05/20 13:42 04/05/20 13:42 Course - Re-evaluation Re-evalutation: 04/06/20 09:14 Patient was monitored for several hours getting IV fluids to get her pulse under control as well as her sats to stabilize and her tachypnea stabilized. She was given 2 L of fluids and then she stated that her nose felt congested so we did Covid testing and then irrigated the nose clean the nose set her up for a while and she did stabilize her heart rate respiratory rate to her normal. Patient states that tachycardia of 110-120 is not unusual for her she was awake alert and oriented throughout all this visit. There was no confusion noted throughout the whole visit. She stated she was ready to go home throughout the whole visit but she was dehydrated. After her 2 L of fluids mucous membrane was much more moist her lips were not is dry. She was provided with Vaseline for her lips as well. She was encouraged to increase her p.o. fluids to help her with her disease process. Dr. Rodgers min examined the patient. When she was stable she stated that patient would be okay to go home because this was her baseline. - Vital Signs Vital signs: Temp Pulse Resp BP Pulse Ox 98.5 F 126 H 18 123/96 H 100 04/06/20 06:08 04/06/20 06:08 04/06/20 06:08 04/06/20 03:00 04/06/20 06:08 - Laboratory Results Result Diagrams: 04/05/20 16:44 04/06/20 03:21 Laboratory Results Interpreted: 04/05/20 04/05/20 04/05/20 16:44 16:44 18:08 RBC 5.91 H Hgb 15.6 H Hct 49.6 H MCH 26.4 L MCHC 31.5 L Lymph % (Auto) 7.3 L Absolute Neuts (auto) 8.3 H Seg Neutrophils % 84.1 H Sodium Chloride 88 L Carbon Dioxide 42 H* Creatinine < 0.15 L Glucose 111 H Urine Protein 30 H Urine Ketones TRACE H Urine Urobilinogen 2.0 H Ur Leukocyte Esterase TRACE H Urine Ascorbic Acid 40 H 04/06/20 03:21 RBC Hgb Hct MCH MCHC Lymph % (Auto) Absolute Neuts (auto) Seg Neutrophils % Sodium 134.9 L Chloride 90 L Carbon Dioxide 38 H Creatinine < 0.15 L Glucose Urine Protein Urine Ketones Urine Urobilinogen Ur Leukocyte Esterase Urine Ascorbic Acid Critical Laboratory Results Reviewed: Yes Attending or Supervising Physician who Reviewed Labs: SHIMON RODGERS - Radiology Results Critical Radiology Results Reviewed: No Critical Results Discharge - Discharge Clinical Impression: Exacerbation of multiple sclerosis, Person under investigation for COVID-19 URI (upper respiratory infection) Qualifiers: URI type: unspecified URI Qualified Code(s): J06.9 - Acute upper respiratory infection, unspecified Condition: Stable Disposition: HOME, SELF-CARE Additional Instructions: You were seen today for possible exacerbation of her multiple sclerosis. You were dehydrated when you first came in but she has had 2 L of fluid since then as well as drink fluids Dehydration Dehydration can result from vomiting or diarrhea, fever, or decreased intake of fluids. If severe, hospitalization and intravenous fluids may be required. Most cases are treated at home with fluids by mouth. For the next 24 hours, drink lots of clear fluids. In mild cases, this can be soda pop or sports drinks. For more severe dehydration, the doctor may recommend special fluids such as Pedialyte or Lytren. Try to get three liters (3 quarts) of fluid per day. If vomiting occurs, continue to drink the fluids frequently (every 15 to 20 minutes), but in small amounts (one or two ounces). Depending on the type of dehydration, the doctor may prescribe antinausea medicine or potassium replacements. Call the doctor or return for re-examination if you become progressively weak, vomit repeatedly, or have other new symptoms. CT of the head was completed which I have given you a written report of the take to your primary care for follow-up and your neurologist before your next treatment. We have also pleaded a chest x-ray and lab work I have given you written report of labs and x-rays. Treated with 2 L of fluids and 1 Percocet for your discomfort. FOLLOW-UP CARE: If you have been referred to a physician for follow-up care, call the physicians office for an appointment as you were instructed or within the next two days. If you experience worsening or a significant change in your symptoms, notify the physician immediately or return to the Emergency Department at any time for re-evaluation. Forms: Elevated Blood Pressure Referrals: NENA FIELDS MD [Primary Care Provider] - Follow up as needed
--- NOTE | 2020-04-06 07:38 | ER Document Report ---
Doctor's Note Notes: 04/06/20 07:34 I was asked to see the patient by the DANETTE. Patient is a 29-year-old female with a past medical history of MS and muscular dystrophy who presents with her family for increasing confusion over the past couple of days. Patient states that this normally happens before she is due for her next steroid treatment. Patient states she has been fatigued and sleeping more often and has not been drinking water. Her family states that she seemed to be confused. On my assessment, patient is awake and alert. She was given fluids because she appeared dehydrated based on her blood work prior to my assessment. On exam, patient is tachycardic in the 120s. She states that this is normal for her. She is on room air and breathing easy. Patient is wheelchair bound. Skin color is normal. She is in no acute distress. Patient is alert and oriented x3. Patient had initially high CO2, she was given fluids and this was retested and has improved. Patient does not have any evidence of infection. Patient had a Covid test which is pending. They did clean out her nose and she states that she is breathing much easier. Her pulse ox is on the high 90s and her respirations are normal at my assessment. I discussed options with the patient. She states she just wants to go home and be discharged. She states she feels back to normal. Her father who was in the room states this is her normal mental state and they would like to go home. I informed her that she needs to follow- up with neurology and her PCP. She was given strict return precautions. Patient and her father are very agreeable to this plan.
== END 2020-04-06 06:08 | disposition home or self-care (01) ==
LOC: ER 13:25
DX: G35 Multiple sclerosis (principal); J06.9 Acute upper respiratory infection, unspecified; G71.00 Muscular dystrophy, unspecified; R41.0 Disorientation, unspecified; R53.83 Other fatigue; R00.0 Tachycardia, unspecified; R63.0 Anorexia; E86.0 Dehydration; Z99.3 Dependence on wheelchair; Z79.899 Other long term (current) drug therapy; Z20.822 Contact with and (suspected) exposure to COVID-19
CPT/HCPCS: 93005; 99285; 96360; 96361 ×2; 36415; 87086; 83735; 85025; 87088; 80053; 81001; 84484; 87186; 71045; 70450; 93010; U0003; A9270; J7120; C9803; 87635

== ENCOUNTER 2020-04-07 13:32 | Emergency (ER) | payer MEDICARE ==
[2020-04-07] MEDS ORDERED: ETOMIDATE INJ/PF 20 MG/10 ML SDV IV ONE ×2 (13:51→14:00)
[2020-04-07] MEDS ORDERED: SUCCINYLCHOLINE CHLORIDE INJ 200 MG/10 ML VIAL IV ONE (13:51)
[2020-04-07] MEDS ORDERED: SUCCINYLCHOLINE CHLORIDE INJ 200 MG/10 ML VIAL ONE (14:00)
[2020-04-07] MEDS ORDERED: PROPOFOL INJ 200 MG/20 ML VIAL IV ONE (14:25)
[2020-04-07] MEDS ORDERED: PROPOFOL 1,000 MG/100 ML INFUS..BTL IV PRN (14:27)
[2020-04-07 14:33] LABS: ABSOLUTE LYMPHOCYTES (AUTO) 0.6 10^3/uL (0.5-4.7); ABSOLUTE MONOCYTES (AUTO) 0.3 10^3/uL (0.1-1.4); ABSOLUTE NEUT (AUTO) 6.6 10^3/uL (1.7-8.2); BASOPHILS % (AUTO) 0.3 % (0-2); EOSINOPHILS % (AUTO) 0.1 % (0-6); HEMATOCRIT 44.5 % (36.0-47.0); HEMOGLOBIN 13.8 g/dL (12.0-15.5); LYMPHOCYTES % (AUTO) 8.2 % (13-45); MEAN CORPUSCULAR HEMOGLOBIN 26.3 pg (27.0-33.4); MEAN CORPUSCULAR VOLUME 85 fl (80-97); MONOCYTES % (AUTO) 3.5 % (3-13); PLATELET COUNT 211 10^3/uL (150-450); RED BLOOD COUNT 5.24 10^6/uL (3.72-5.28); RED CELL DISTRIBUTION WIDTH 13.2 % (11.5-14.0); SEGMENTED NEUTROPHILS % (AUTO) 87.9 % (42-78); TOTAL CELLS COUNTED % (AUTO) 100 %; WHITE BLOOD COUNT 7.5 10^3/uL (4.0-10.5)
[2020-04-07 14:36] LABS: INTERNATIONAL RATION (INR) 1.06
[2020-04-07] MEDS ORDERED: LORAZEPAM INJ 2 MG/1 ML VIAL IV ONE (14:36)
[2020-04-07 14:37] LABS: PARTIAL THROMBOPLASTIN TIME 29.5 SEC (23.5-35.8)
--- NOTE | 2020-04-07 14:37 | RADIOLOGY REPORT (SQ) ---
EXAM DESCRIPTION: CHEST SINGLE VIEW IMAGES COMPLETED DATE/TIME: 04/07/2020 2:29 pm REASON FOR STUDY: intubation COMPARISON: None. EXAM PARAMETERS: NUMBER OF VIEWS: One view. TECHNIQUE: Single frontal radiographic view of the chest acquired. RADIATION DOSE: NA LIMITATIONS: None. FINDINGS: LUNGS AND PLEURA: Left retrocardiac opacification. No large effusion. No pneumothorax. MEDIASTINUM AND HILAR STRUCTURES: No masses. Contour normal. HEART AND VASCULAR STRUCTURES: Heart normal in size. Normal vasculature. BONES: No acute findings. HARDWARE: Endotracheal tube tip overlies midthoracic trachea. Enteric tube tip overlies proximal gas tric body with side port at GE junction. OTHER: No other significant finding. IMPRESSION: Left retrocardiac opacities, likely left lower lobe with atelectasis or airspace diseas e. Endotracheal tube tip overlies midthoracic trachea. Enteric tube side port at GE junction. Consider advancing 5 cm. TECHNICAL DOCUMENTATION: JOB ID: [id number] 2010 [employer]- All Rights Reserved Reading location - IP/workstation name: [email or web address]
[2020-04-07] MEDS ORDERED: LEVETIRACETAM 500 MG/NACL-ISO 500 MG/100 ML RTUPB IV ONE (14:39)
[2020-04-07 14:41] LABS: ALBUMIN 3.8 g/dL (3.5-5.0); ALKALINE PHOSPHATASE 71 U/L (38-126); ASPARTATE AMINO TRANSFERASE 25 U/L (14-36); BILIRUBIN,DIRECT 0.3 mg/dL (0.0-0.4); BILIRUBIN,TOTAL 0.4 mg/dL (0.2-1.3); BLOOD UREA NITROGEN 6 mg/dL (7-20); CALCIUM 8.2 mg/dL (8.4-10.2); CHLORIDE 88 mmol/L (98-107); CREATINE KINASE 39 U/L (30-135); GLUCOSE 169 mg/dL (75-110); POTASSIUM 5.2 mmol/L (3.6-5.0); TOTAL PROTEIN 6.8 g/dL (6.3-8.2)
--- NOTE | 2020-04-07 14:49 | ER Document Report ---
ED General - General Chief Complaint: Unresponsive Stated Complaint: UNRESPONSIVE Primary Care Provider: NENA FIELDS MD [Primary Care Provider] - Follow up as needed TRAVEL OUTSIDE OF THE [place] IN LAST 30 DAYS: No - HPI Notes: Chief complaint: Respiratory arrest History of present illness: 29-year-old female followed by Dr. Fields from neurology with history of multiple sclerosis and muscular dystrophy transported here via EMS for respiratory arrest. Patient has been seen here 48 hours ago by another provider coming in with mild hypotension felt to be dehydrated. She received some IV fluids at that time and had a very thorough work-up including a head CT which was reportedly normal, normal chest x-ray, normal urinalysis, negative Covid test and an unremarkable CBC and chemistry profile. Her EKG at that time showed some sinus tachycardia only. She improved with ministration of fluids and parents state that she was back to baseline and they felt comfortable taking her home. She apparently has complained of some fatigue since then but otherwise no new problems noted. She got up and ate breakfast at home this morning and then stated she was going back to bed because she felt tired. Parents subsequently found her unresponsive. EMS was called found the patient with a pulse and blood pressure low around 90/60 with agonal respirations and unresponsive. They began bagging her. They called us on the radio and I recommended administration of Narcan. She received 2 mg with no improvement.. She was being bagged on arrival here. Fingerstick glucose was 146. Parents subsequently arrived indicate that the patient has been on intermittent infusion therapy of some type and is followed by a local neurologist Dr. Fields. I tried to reach him by telephone unsuccessfully. Parents state that patient does not use drugs or alcohol and has had no recent changes in her usual medications. She is currently on a muscle relaxer and tramadol. She has been taking these medicines intermittently for years. She has no known allergies. To the best of their knowledge she has never had a seizure. Past surgical procedures have included an appendectomy and a hysterectomy which was done for dysfunctional uterine bleeding. Never been intubated in the past. - Related Data Allergies/Adverse Reactions: No Known Allergies Allergy (Verified 04/05/20 15:00) Home Medications: tamadol. cyclobenzaprine Past Medical History - General Information source: Parent, Emergency Med Personnel, [facility], 1928–1983 Records - Social History Smoking Status: Never Smoker Frequency of alcohol use: None Drug Abuse: None Family History: Reviewed & Not Pertinent - Past Medical History Cardiac Medical History: Denies: Hx Coronary Artery Disease, Hx Heart Attack, Hx Hypertension Pulmonary Medical History: Denies: Hx Asthma, Hx Bronchitis, Hx COPD, Hx Pneumonia Neurological Medical History: Denies: Hx Cerebrovascular Accident, Hx Seizures, Hx Parkinson's Disease Endocrine Medical History: Denies: Hx Diabetes Mellitus Type 1, Hx Diabetes Mellitus Type 2 Renal/ Medical History: Denies: Hx End Stage Renal Disease, Hx Kidney Stones, Hx Peritoneal Dialysis Musculoskeletal Medical History: Denies Hx Arthritis, Denies Hx Fibromyalgia, Reports Hx Multiple Sclerosis - MUSCULAR DYSTROPHY, Reports Hx Muscular Dystrophy, Reports Hx Muscle Spasm, Reports Hx Muscle Weakness Psychiatric Medical History: Denies: Hx Dementia Traumatic Medical History: Denies: Hx Fractures Past Surgical History: Reports: Hx Appendectomy, Hx Hysterectomy, Hx Orthopedic Surgery. Denies: Hx Bowel Surgery, Hx Section, Hx Cholecystectomy, Hx Coronary Artery Bypass Graft, Hx Gastric Bypass Surgery, Hx Herniorrhaphy, Hx Mastectomy, Hx Pacemaker, Hx Tonsillectomy, Hx Tubal Ligation - Immunizations Hx Diphtheria, Pertussis, Tetanus Vaccination: Yes Review of Systems - Review of Systems -: Yes ROS unobtainable due to patient's medical condition Physical Exam - Vital signs Vitals: Pulse Ox 100 04/07/20 13:30 GENERAL: Tiny female patient of approximately stated age who is unresponsive. SKIN: Cool and pale. No rashes. HEAD: Normocephalic atraumatic. EYES: Pupils are dilated equal and sluggish. Gaze conjugate. Conjunctivae and sclerae clear. EARS: CANALS AND TMS CLEAR. NOSE: Nasal airway on the left. MOUTH: Moist mucosa. Good dentition. No stridor or edema. No drooling. NECK: Supple. No masses or thyromegaly. No adenopathy. Carotids 2+ without bruits. No JVD. BACK: Symmetrical. CHEST: Agonal respirations. Patient is being bagged. Scattered rhonchi bilaterally. HEART: Tachycardic. Regular rhythm. No murmur gallop or rub. ABDOMEN: Soft nontender without masses, organomegaly or rebound. Bowel sounds normally active. No bruits. GENITALIA: Normal female. EXTREMITIES: Muscular wasting all 4 extremities. No edema. No calf tenderness. Cap refill less than 1.5 seconds. Dorsalis pedis and posterior tibial pulses 3+ and symmetrical. NEUROLOGICAL: GCS 3. Course - Re-evaluation Re-evalutation: 04/07/20 16:21 Patient had a a generalized grand mal seizure after she was intubated here. Retrospectively I think this was probably the initial cause of her respiratory arrest. She had a normal head CT 2 days ago. We are repeating a head CT. Her chest x-ray shows questionable retrocardiac infiltrate possibly representing aspiration. I have given her IV Rocephin and vancomycin. She has gotten IV Keppra and her seizure was terminated with IV Ativan. She is on propofol infusion at this time. Patient was seen by Dr. Santana from critical care service here. He does not have any beds currently available his unit recommended transfer elsewhere. We presented case to Dr. Pasha Bullard with the neurology service at [facility]. He recommended consideration of LP after CT has been repeated. We are still awaiting CT repeat. Transfer center from [facility] now says they have no beds available in their ICU and suggest we seek transfer elsewhere. I have subsequently spoken with [facility] and they also do not have any ICU beds. I have paged transfer center at [facility] and we are awaiting return page from their critical care service. 04/07/20 17:58 I was initially advised that [facility] has no ICU beds available. I subsequently put me in touch with Dr. Forrest Allan from their neurology service and he has accepted the patient for transfer to neurological ICU. - Vital Signs Vital signs: Temp Pulse Resp BP Pulse Ox 96.9 F L 16 107/75 100 04/07/20 15:11 04/07/20 15:11 04/07/20 15:11 04/07/20 16:12 - Laboratory Results Result Diagrams: 04/07/20 13:41 04/07/20 13:41 Laboratory Results Interpreted: 04/07/20 04/07/20 04/07/20 13:41 13:41 14:43 MCH 26.3 L MCHC 31.0 L Lymph % (Auto) 8.2 L Seg Neutrophils % 87.9 H Carbonic Acid ABG pH ABG pCO2 ABG HCO3 ABG Total CO2 ABG O2 Saturation Sodium 135.2 L Potassium 5.2 H Chloride 88 L Carbon Dioxide 43 H* BUN 6 L Creatinine < 0.15 L Glucose 169 H Calcium 8.2 L Urine Ketones 20 H Salicylates < 1.0 L Acetaminophen < 10 L 04/07/20 17:30 MCH MCHC Lymph % (Auto) Seg Neutrophils % Carbonic Acid 0.87 L ABG pH 7.63 H* ABG pCO2 28.8 L ABG HCO3 29.4 H ABG Total CO2 30.3 H ABG O2 Saturation 98.2 H Sodium Potassium Chloride Carbon Dioxide BUN Creatinine Glucose Calcium Urine Ketones Salicylates Acetaminophen Critical Laboratory Results Reviewed: No Critical Results Attending or Supervising Physician who Reviewed Labs: ALLYSON FUNEZ E - Radiology Results Radiology Results Interpreted: 04/07/20 16:30 Chest X-Ray 04/07/20 14:13 IMPRESSION: Left retrocardiac opacities, likely left lower lobe with atelectasis or airspace disease. Endotracheal tube tip overlies midthoracic trachea. Enteric tube side port at GE junction. Consider advancing 5 cm. Tube has been adjusted by respiratory care Critical Radiology Results Reviewed: Yes Attending or Supervising Physician who Reviewed Radiology: ALLYSON FUNEZ E - EKG Interpretation by Me Additional EKG results interpreted by me: 04/07/20 16:31 Twelve-lead EKG reviewed by me contemporaneously: 1342 hrs. Indication for study: Respiratory arrest Rhythm: 124 Rate: Sinus tachycardia Intervals: Normal intervals QRS axis: +[address]/T wave changes: LVH with repolarization changes Comparison with prior tracing: Rate increased since prior tracing April 05, 2020 Interpretation: Sinus tachycardia. LVH. Procedures - Intubation Orotracheal Airway evaluation: Abnormal 3-3-2 rule Mallampati Classification: Class 3 Medications: Etomidate, Succinylcholine Intubation method: Orotracheal Blade type: Little Blade size: 3 Equipment used: Glidescope ETT size: 6.5 ETT secured at: Teeth ETT secured at (cm): 21 Breath Sounds after Intubation: Equal End tidal CO2 confirmed: Yes Post Intubation Xray: Yes - Satisfactory tube position Notes: 04/07/20 15:08 Difficult intubation. O2 saturation was maintained throughout the procedure. Nurse assistant city attorney made additional passes and was able to successfully insert the tube. Critical Care Note - Critical Care Note Total time excluding time spent on procedures (mins): 120 - Respiratory arrest. Status epilepticus. Intubation. Discharge - Discharge Clinical Impression: Respiratory arrest, New onset seizure, Exacerbation of multiple sclerosis Condition: Critical Disposition: [place] Referrals: NENA FIELDS MD [Primary Care Provider] - Follow up as needed
[2020-04-07 14:50] LABS: ACETAMINOPHEN < 10 ug/mL (10-30); ALCOHOL < 10 mg/dL (NONE DETECTED); SALICYLATE < 1.0 mg/dL (2.0-20.0)
[2020-04-07 14:54] LABS: CARBON DIOXIDE 43 mmol/L (22-30)
[2020-04-07 14:55] LABS: ANION GAP 5 (5-19)
[2020-04-07 15:24] LABS: APPEARANCE,URINE CLEAR; BILIRUBIN,URINE NEGATIVE (NEGATIVE); COLOR,URINE YELLOW; GLUCOSE, URINE NEGATIVE (NEGATIVE); KETONES,URINE 20 mg/dL (NEGATIVE); PROTEIN,URINE NEGATIVE (NEGATIVE); URINE SPECIFIC GRAVITY 1.009; UROBILINOGEN,URINE NEGATIVE mg/dL (<2.0)
[2020-04-07 15:38] LABS: URINE AMPHETAMINES SCREEN NEGATIVE; URINE BARBITURATES SCREEN NEGATIVE; URINE BENZODIAZEPINES SCREEN NEGATIVE; URINE COCAINE SCREEN NEGATIVE; URINE MARIJUANA (THC) SCREEN NEGATIVE; URINE METHADONE SCREEN NEGATIVE; URINE PHENCYCLIDINE SCREEN NEGATIVE
[2020-04-07] MEDS ORDERED: LEVETIRACETAM 1000 MG/NACL-ISO 1,000 MG/100 ML RTUPB IV ONE (15:38)
--- NOTE | 2020-04-07 15:38 | ER Document Report ---
Doctor's Note Notes: I took the call from [facility] neurology as Dr. Sun was unavailable to answer the call. Neurology recommended increasing the amount of Keppra that was given, adding an extra 1g now, then continuing on 1g Keppra twice daily. Consider a lumbar puncture. Unsure if it is a seizure, states needs ongoing further work-up for infection. Agrees need ICU admission, will be happy to see in consult if patient is transferred to [facility], ICU attending to be paged.
[2020-04-07] MEDS ORDERED: CEFTRIAXONE INJ 1000 MG VIAL IV ONE (15:56)
[2020-04-07] MEDS ORDERED: VANCOMYCIN HCL INJ 1000 MG VIAL IV ONE (15:56)
--- NOTE | 2020-04-07 17:19 | RADIOLOGY REPORT (SQ) ---
EXAM DESCRIPTION: CT HEAD WITHOUT IMAGES COMPLETED DATE/TIME: 04/07/2020 5:07 pm REASON FOR STUDY: seizure COMPARISON: 04/05/2020 TECHNIQUE: Axial images acquired through the brain without intravenous contrast. Images reviewed wi th bone, brain and subdural windows. Additional sagittal and coronal reconstructions were generated. Images stored on PACS. All CT scanners at this facility use dose modulation, iterative reconstruction, and/or weight based d osing when appropriate to reduce radiation dose to as low as reasonably achievable (ALARA). [facility]: Dose Right [facility]: CareDose [facility]: Dose Right [facility]: Teradose 4D [facility]: [employer] RADIATION DOSE: CT Rad equipment meets quality standard of care and radiation dose reduction techniq ues were employed. CTDIvol: 53.2 mGy. DLP: 937 mGy-cm. mGy. LIMITATIONS: None. FINDINGS: VENTRICLES: Normal size and contour. CEREBRUM: No masses. No hemorrhage. No midline shift. No evidence for acute infarction. Normal gra y/white matter differentiation. No areas of low density in the white matter. CEREBELLUM: No masses. No hemorrhage. No alteration of density. No evidence for acute infarction. EXTRAAXIAL SPACES: No fluid collections. No masses. ORBITS AND GLOBE: No intra- or extraconal masses. Normal contour of globe without masses. CALVARIUM: No fracture. PARANASAL SINUSES: No fluid or mucosal thickening. SOFT TISSUES: No mass or hematoma. OTHER: No other significant finding. IMPRESSION: NORMAL BRAIN CT WITHOUT CONTRAST. EVIDENCE OF ACUTE STROKE: NO. COMMENT: Quality ID # [id number]: Final reports with documentation of one or more dose reduction techniques (e.g., Automated exposure control, adjustment of the mA and/or kV according to patient size, use of iterative reconstruction technique) TECHNICAL DOCUMENTATION: JOB ID: [id number] 2010 [employer]- All Rights Reserved Reading location - IP/workstation name: [email or web address]
[2020-04-07 17:52] LABS: ARTERIAL BLOOD BASE EXCESS 8.8 mmol/L; ARTERIAL BLOOD FIO2 60%; ARTERIAL BLOOD H2CO3 0.87 mmol/L (1.05-1.35); ARTERIAL BLOOD HCO3 29.4 mmol/L (20-24); ARTERIAL BLOOD O2 SATURATION 98.2 % (94-98); ARTERIAL BLOOD PCO2 28.8 mmHg (35-45); ARTERIAL BLOOD TOTAL CO2 30.3 mmol/L (21-25)
[2020-04-07 17:55] LABS: ARTERIAL BLOOD PH 7.63 (7.35-7.45)
[2020-04-07] MEDS ORDERED: VANCOMYCIN HCL INJ 1000 MG VIAL ONE (18:42)
--- NOTE | 2020-04-07 20:35 | RADIOLOGY REPORT (SQ) ---
EXAM DESCRIPTION: Site: CHEST SINGLE VIEW RP: XR CHEST 1 VIEW CLINICAL HISTORY: 29 years Female; line placement; FINDINGS: AP chest at 1946. Since 14 7 hours, right subclavian line has been placed, tip at the cavoatrial junction. No pneumothorax. Endotracheal tube 3.5 cm above alice. Enteric tube tip in the stomach. Lungs are unchanged, well-inflated. Mediastinum is unchanged. IMPRESSION: Right subclavian line tip at the cavoatrial junction. No pneumothorax.
--- NOTE | 2020-04-07 21:44 | RADIOLOGY REPORT (SQ) ---
EXAM DESCRIPTION: Site: CTA CHEST RP: CT CHEST ANGIOGRAPHY WITH IV CONTRAST CLINICAL HISTORY: 29 years Female; hypoxemia; high prob. PE; TECHNIQUE: CT angiogram of the chest using intravenous contrast. MIP reconstructions were performed. All CT scans at this facility use dose modulation, iterative reconstruction, and/or weight based dosing when appropriate to reduce radiation dose to as low as reasonably achievable. COMPARISON: None. FINDINGS: Pulmonary arteries: No filling defects in the central pulmonary arteries. Lungs: There is complete consolidation of left lower lobe, with fluid filling the bronchi. Lungs are otherwise well-inflated. No pneumothorax or pleural effusion. Mediastinum: Endotracheal tube is in place. Enteric tube tip is in the stomach. Right subclavian line tip at the cavoatrial junction. Mild anterior pneumomediastinum. No thoracic aortic aneurysm or dissection. No pericardial effusion. Bones:No acute bone findings. There is scattered right anterior chest wall soft tissue air, extending into the right supraclavicular fossa. No focal hematoma. IMPRESSION: 1. Complete consolidation of the left lower lobe, with fluid filling the bronchi. 2. No CT evidence for pulmonary embolism. 3. Pneumomediastinum and right anterior chest wall soft tissue air
--- NOTE | 2020-04-07 21:57 | EKG REPORT ---
SEVERITY:- ABNORMAL ECG - SINUS TACHYCARDIA MARÍA, CONSIDER BIATRIAL ABNORMALITIES LEFT VENTRICULAR HYPERTROPHY : Confirmed by: Kayla Arzola 07-Apr-2020 21:56:57
[2020-04-07] MEDS ORDERED: ACETAMINOPHEN 1,000 MG/100 ML RTUPB IV ONE (23:30)
--- NOTE | 2020-04-08 00:17 | ER Document Report ---
Doctor's Note Notes: 04/08/20 00:16 Transport has arrived to take the patient to [place]. Patient remains intubated and does not appear to be in any acute distress at this time patient appears stable for transfer. Results of CTA of chest discussed with transport crew and a call has been put into [place] to speak to the accepting provider about the right-sided soft tissue air and pneumomediastinum. At this time I am awaiting a return call.
[2020-04-08] MEDS ORDERED: DEXTROSE 5%-WATER 250 ML with NOREPINEPHRINE BITARTRATE 4 MG IV PRN ×2 (00:18)
--- NOTE | 2020-04-08 00:20 | ER Document Report ---
Doctor's Note Notes: 04/08/20 00:19 Transport crew has had to increase the propofol for sedation on the patient. The are requesting a bag of Levophed to take with him to keep her blood pressure up as the propofol has decreased her blood pressure some and they want to titrate the 2 drugs to keep her blood pressure up and to keep her comfortably sedated. 04/08/20 00:34 Findings of CTA of the chest discussed with Dr. Allan, attending at [facility]. He was made aware that the transport team is here and that patient has remained hemodynamically stable during the past 4-1/2 hours of my shift.
[2020-04-08] MEDS ORDERED: NOREPINEPHRINE BITARTRATE INJ/PF 4 MG/4 ML SDV IV ONE (00:28)
[2020-04-08 01:22] VITALS: BP 129/108
== END 2020-04-08 01:22 | disposition short-term general hospital (02) ==
LOC: ER 13:32
DX: G40.401 Other generalized epilepsy and epileptic syndromes, not intractable, with status epilepticus (principal); R09.2 Respiratory arrest; G35 Multiple sclerosis; G71.00 Muscular dystrophy, unspecified; J98.2 Interstitial emphysema; I51.7 Cardiomegaly; R00.0 Tachycardia, unspecified; R53.83 Other fatigue; Z20.822 Contact with and (suspected) exposure to COVID-19
CPT/HCPCS: 93005; 99285; 96375; 96365; 96367; 36415; 87040; 80307 ×4; 82803; 82550; 83605; 85025; 85610; 85730; 0241U ×4; 80053; 81001; 84484; 71045; 70450; 71275; 94660; 31500 ×2; 93010; 36556; J2704; J2060; J0330; J0696; J3490; J3370; J1953 ×2; J0131; C9803